=== PATIENT | female | born 1970 | race Caucasian/White ===

== ENCOUNTER 2023-08-17 06:47 | Day surgery (SDC) | payer MEDICARE, MEDICAID ==
[2023-08-17] MEDS ORDERED: Propofol 200 MG/20 ML SDV ONE ×3 (07:48→09:25)
[2023-08-17] MEDS ORDERED: Midazolam 1 MG/ML 2 ML SDV ONE (07:49)
[2023-08-17] MEDS ORDERED: fentaNYL 100 MCG/2 ML SDV ONE (07:49)
[2023-08-17] MEDS ORDERED: Sodium Chloride 0.9% 10 ML Syringe FLUSH SCH (09:00)
[2023-08-17] MEDS ORDERED: Sodium Chloride 0.9% 10 ML Syringe FLUSH PRN (09:13)
[2023-08-17] MEDS ORDERED: Lactated Ringers 1,000 ML IV SCH (09:15)
[2023-08-17] MEDS ORDERED: Ketamine 500 mg/10 ML MDV ONE (09:25)
[2023-08-17 16:25] VITALS: BP 142/82; PULSE 80
== END 2023-08-17 10:25 | disposition home or self-care (01) ==
LOC: JD.SDS 06:47
PROVIDERS: ATTEND Surgery
DX: D12.2 Benign neoplasm of ascending colon (principal); D12.3 Benign neoplasm of transverse colon; K62.1 Rectal polyp; K21.00 Gastro-esophageal reflux disease with esophagitis, without bleeding; K22.89 Other specified disease of esophagus; B37.81 Candidal esophagitis; K44.9 Diaphragmatic hernia without obstruction or gangrene; K29.70 Gastritis, unspecified, without bleeding; K29.80 Duodenitis without bleeding; K64.8 Other hemorrhoids; K22.10 Ulcer of esophagus without bleeding; R00.2 Palpitations; J45.909 Unspecified asthma, uncomplicated; E03.9 Hypothyroidism, unspecified; I10 Essential (primary) hypertension; G43.909 Migraine, unspecified, not intractable, without status migrainosus; Z79.1 Long term (current) use of non-steroidal anti-inflammatories (NSAID); Z90.49 Acquired absence of other specified parts of digestive tract; Z79.890 Hormone replacement therapy; Z79.899 Other long term (current) drug therapy; Z88.0 Allergy status to penicillin; Z88.1 Allergy status to other antibiotic agents; Z88.8 Allergy status to other drugs, medicaments and biological substances; Z91.018 Allergy to other foods; Z87.891 Personal history of nicotine dependence
CPT/HCPCS: 00813; 88305; 88312; J2250; J2704; J3010; J3490; J7120

== ENCOUNTER → 2024-12-31 | Day surgery (SDC) | payer MEDICARE, MEDICAID ==
[~2024-12-31] MED LIST: EPINEPHrine 1 MG/ML SDV ONE; HYDROmorphone 0.5 MG/0.5 ML Syringe IVPUSH PRN; Ketorolac 30 MG/ML SDV ONE; Lactated Ringers 1,000 ML ONE; Lidocaine 2% 5 ML SDV ONE; Midazolam 1 MG/ML 2 ML SDV ONE; Ondansetron 4 MG/2 ML SDV IVPUSH PRN; Ondansetron 4 MG/2 ML SDV ONE; Phenylephrine 1% 10 MG/ML SDV ONE; Propofol 200 MG/20 ML SDV ONE; Ropivacaine 0.5% 5 MG/ML 30 ML SDV ONE; Sodium Chloride 0.9% 10 ML Syringe FLUSH PRN; Sodium Chloride 0.9% 10 ML Syringe FLUSH SCH; ceFAZolin 2 GM Vial ONE; fentaNYL 100 MCG/2 ML SDV IVPUSH PRN; fentaNYL 100 MCG/2 ML SDV ONE
[2024-12-31] MEDS: Lactated Ringers 1,000 ML IV SCH (06:45)
[2024-12-31] MEDS: Clindamycin Phosphate in D5W 900 MG in Premix Bag 1 BAG IV ONE (06:58)
[2024-12-31] MEDS: Pregabalin 25 MG Cap PO ONE (06:58)
[2024-12-31] MEDS: Acetaminophen 325 MG Tab PO ONE (06:58)
[2024-12-31] MEDS: oxyCODONE ER 10 MG TAB.ER PO ONE (06:58)
[2024-12-31] MEDS: Morphine 8 MG, EPINEPHrine 0.3 MG, Ketorolac 30 MG, Sodium Chloride 0.9% 7.9 ML PRN (09:18)
[2024-12-31] MEDS: Tranexamic Acid 1,000 MG/10 ML Vial ONE (09:26)
[2024-12-31] MEDS: VANCOmycin 1 GM SDV ONE (09:26)
[2024-12-31 12:27] VITALS: PULSE 71
[2024-12-31 12:28] VITALS: BP 96/54
[2024-12-31] MEDS: oxyCODONE 5 MG Tab PO PRN (13:30)
== END | disposition home or self-care (01) ==
LOC: JD.SDS 06:45
PROVIDERS: ATTEND Orthopaedic Surgery
DX: M17.12 Unilateral primary osteoarthritis, left knee (principal); E11.9 Type 2 diabetes mellitus without complications; I10 Essential (primary) hypertension; E78.49 Other hyperlipidemia; E03.9 Hypothyroidism, unspecified; Z79.890 Hormone replacement therapy; Z79.84 Long term (current) use of oral hypoglycemic drugs; Z79.899 Other long term (current) drug therapy; Z88.0 Allergy status to penicillin; Z88.8 Allergy status to other drugs, medicaments and biological substances; Z91.048 Other nonmedicinal substance allergy status
CPT/HCPCS: 0055T; 27447; 73560; 97110; 97116; 97161; A9270; C1713; C1776; J0171; J0736; J1885; J2250; J2272; J2371; J2405; J2704; J2795; J7120; J0690; J3010; J3490